=== PATIENT | male | born 1955 | race Caucasian/White ===

== ENCOUNTER → 2016-08-11 | Outpatient (CLI) | payer BC ==
[~2016-08-11] MED LIST: OMEPRAZOLE40 M1 PO
== END | disposition home or self-care (01) ==
LOC: AMB 09:36
DX: C16.8 Malignant neoplasm of overlapping sites of stomach (principal); Z85.038 Personal history of other malignant neoplasm of large intestine; Z93.3 Colostomy status; F17.200 Nicotine dependence, unspecified, uncomplicated; Z88.0 Allergy status to penicillin
CPT/HCPCS: J0330; J1100; J2250; J2405; J3010

== ENCOUNTER 2016-09-07 18:13 | Emergency (ER) | payer BC ==
[~2016-09-07] VITALS: Ht 175.3 cm; Wt 62.2 kg
[2016-09-07 18:24] VITALS: BP 96/73
== END 2016-09-07 19:00 | disposition left against medical advice (07) ==
LOC: EME 18:13
DX: T82.598A Other mechanical complication of other cardiac and vascular devices and implants, initial encounter (principal); Z53.21 Procedure and treatment not carried out due to patient leaving prior to being seen by health care provider
CPT/HCPCS: 99281; 99284

== ENCOUNTER 2016-11-14 17:16 | Emergency (ER) | payer BC ==
[~2016-11-14] VITALS: Ht 175.3 cm; Wt 65.1 kg
[~2016-11-14 17:16] MED LIST changes: +Magic Mouthwash; +ROXICODONE5 MG PO; +WELLBUTRIN100 MG PO
[2016-11-14 18:10] LABS: HEMATOCRIT 24.5 % (38.0-50.0); MCH 30.9 PG (29.0-34.0); MCHC 33.1 G/DL (30.0-36.0); MCV 93.5 FL (86-99); MEAN PLAT.VOLUME 9.4 uM^3 (9.0-12.4); PLATELET COUNT 210 K/uL (156-360); RBC DIS.WIDTH-CV 15.7 % (11.8-14.6); RBC DIS.WIDTH-SD 53.6 % (39-53); RED BLOOD COUNT 2.62 M/uL (4.00-5.50)
[2016-11-14 18:18] LABS: CHLORIDE 98 mEq/L (99-109); POTASSIUM 3.6 mEq/L (3.7-5.4); SODIUM 130 mEq/L (136-147)
[2016-11-14 18:20] LABS: GLUCOSE 95 mg/dL (70-99)
[2016-11-14 18:21] LABS: ANION GAP 8 MEQ/L (2-14)
[2016-11-14 18:22] LABS: TOTAL BILIRUBIN 0.8 mg/dL (0.0-1.0)
[2016-11-14 18:24] LABS: ALKALINE PHOSPHATASE 87 IU/L (3-129); GFR ESTIMATE (CALCULATED) > 59 mL/min/
[2016-11-14 18:25] LABS: UREA NITROGEN (BUN) 20 mg/dL (9-23)
[2016-11-14 18:52] LABS: SAMPLE HEMOLYSIS CHECK 0; SAMPLE ICTERIC CHECK 0; SAMPLE LIPEMIA CHECK 0
[2016-11-14 19:03] LABS: LIPASE < 3 U/L (1.0-51.0)
[2016-11-14 20:59] VITALS: BP 98/70
== END 2016-11-14 21:04 | disposition home or self-care (01) ==
LOC: EME 17:16
DX: K94.13 Enterostomy malfunction (principal); Z87.891 Personal history of nicotine dependence
CPT/HCPCS: 80053; 83690; 85027; 99281; 99284; J7030

== ENCOUNTER 2016-11-24 11:59 | Inpatient (IN) | payer BC ==
[~2016-11-24] VITALS: Ht 175.3 cm; Wt 56.5 kg
[2016-11-24 12:49] LABS: EOSINOPHIL (%) 3.5 % (0-5); EOSINOPHIL COUNT 0.4 K/uL (0-0.3); HEMATOCRIT 29.9 % (38.0-50.0); IMMATURE GRANULOCYTE (%) 0.7 % (0.0-0.7); IMMATURE GRANULOCYTE COUNT 0.1 K/uL; INSTRUMENT ABS NEUTROPHIL CT 8.7 K/uL; LYMPHOCYTE COUNT 2.1 K/uL (1.0-2.8); MCH 30.5 PG (29.0-34.0); MCHC 31.4 G/DL (30.0-36.0); MCV 97.1 FL (86-99); MEAN PLAT.VOLUME 9.6 uM^3 (9.0-12.4); MONOCYTE (%) 6.3 % (3-12); MONOCYTE COUNT 0.8 K/uL (0-0.8); NEUTROPHIL (%) 71.7 % (45-76); NEUTROPHIL COUNT 8.7 K/uL (1.8-6.4); RBC DIS.WIDTH-SD 56.9 % (39-53); RED BLOOD COUNT 3.08 M/uL (4.00-5.50); WHITE BLOOD COUNT 12.2 K/uL (4.1-10.2)
[2016-11-24 12:58] LABS: CHLORIDE 102 mEq/L (99-109); POTASSIUM 4.7 mEq/L (3.7-5.4); SODIUM 138 mEq/L (136-147)
[2016-11-24 13:00] LABS: GLUCOSE 99 mg/dL (70-99)
[2016-11-24 13:01] LABS: ANION GAP 12 MEQ/L (2-14); PLATELET COUNT 611 K/uL (156-360)
[2016-11-24 13:02] LABS: TOTAL BILIRUBIN 0.4 mg/dL (0.0-1.0)
[2016-11-24 13:04] LABS: ALKALINE PHOSPHATASE 136 IU/L (3-129); GFR ESTIMATE (CALCULATED) > 59 mL/min/
[2016-11-24 13:05] LABS: UREA NITROGEN (BUN) 21 mg/dL (9-23)
[2016-11-24] MEDS ORDERED: BUPROPION HCL150 M2 PO (18:21)
[2016-11-24] MEDS ORDERED: COLACE100 MG PO (18:22)
[2016-11-24] MEDS ORDERED: SENOKOT,SENN1 TABLET PO (18:23)
[2016-11-24 21:19] VITALS: BP 107/68
[2016-11-24 23:23] VITALS: BP 112/74
[2016-11-25 04:12] VITALS: BP 124/84
[2016-11-25 05:09] LABS: HEMATOCRIT 27.5 % (38.0-50.0); MCH 30.9 PG (29.0-34.0); MCV 96.5 FL (86-99); MEAN PLAT.VOLUME 9.8 uM^3 (9.0-12.4); PLATELET COUNT 551 K/uL (156-360); RBC DIS.WIDTH-CV 15.8 % (11.8-14.6); RBC DIS.WIDTH-SD 56.5 % (39-53); RED BLOOD COUNT 2.85 M/uL (4.00-5.50); WHITE BLOOD COUNT 10.9 K/uL (4.1-10.2)
[2016-11-25 05:38] LABS: ANION GAP 8 MEQ/L (2-14); CHLORIDE 100 MEQ/L (99-109); GFR ESTIMATE (CALCULATED) > 59 mL/min/; GLUCOSE 112 mg/dL (70-99); POTASSIUM 4.4 MEQ/L (3.7-5.4); SAMPLE HEMOLYSIS CHECK 0; SAMPLE ICTERIC CHECK 0; SAMPLE LIPEMIA CHECK 0; SODIUM 137 MEQ/L (136-147); UREA NITROGEN (BUN) 12 mg/dL (9-23)
[2016-11-25 08:09] VITALS: BP 102/63
[2016-11-25 11:31] VITALS: BP 107/72
[2016-11-25 15:15] VITALS: BP 120/75
[2016-11-25 23:29] VITALS: BP 106/65
[2016-11-26 07:23] VITALS: BP 106/67
[2016-11-27 00:08] VITALS: BP 107/63
[2016-11-27 07:09] VITALS: BP 108/67
[2016-11-27 15:24] VITALS: BP 109/73
[2016-11-27 23:33] VITALS: BP 102/64
[2016-11-28 04:10] VITALS: BP 102/64
[2016-11-28 08:02] VITALS: BP 104/74
[2016-11-28 14:33] LABS: ANION GAP 7 MEQ/L (2-14); CHLORIDE 100 MEQ/L (99-109); MAGNESIUM 1.7 mg/dl (1.3-2.7); POTASSIUM 3.9 MEQ/L (3.7-5.4); SAMPLE HEMOLYSIS CHECK 0; SAMPLE ICTERIC CHECK 0; SAMPLE LIPEMIA CHECK 0; SODIUM 137 MEQ/L (136-147); TOTAL BILIRUBIN 0.4 MG/DL (0.0-1.0)
[2016-11-28 14:35] LABS: BASOPHIL COUNT 0.1 K/uL (0-0.1); EOSINOPHIL (%) 5.8 % (0-5); EOSINOPHIL COUNT 0.4 K/uL (0-0.3); HEMATOCRIT 29.3 % (38.0-50.0); IMMATURE GRANULOCYTE (%) 0.3 % (0.0-0.7); LYMPHOCYTE COUNT 2.2 K/uL (1.0-2.8); MCH 30.4 PG (29.0-34.0); MCHC 31.4 G/DL (30.0-36.0); MCV 96.7 FL (86-99); MEAN PLAT.VOLUME 9.3 uM^3 (9.0-12.4); MONOCYTE (%) 11.1 % (3-12); MONOCYTE COUNT 0.7 K/uL (0-0.8); NEUTROPHIL (%) 46.7 % (45-76); PLATELET COUNT 475 K/uL (156-360); RBC DIS.WIDTH-CV 15.1 % (11.8-14.6); RBC DIS.WIDTH-SD 53.7 % (39-53); RED BLOOD COUNT 3.03 M/uL (4.00-5.50)
[2016-11-28 14:36] LABS: WHITE BLOOD COUNT 6.4 K/uL (4.1-10.2)
[2016-11-28 14:48] LABS: ALKALINE PHOSPHATASE 99 IU/L (3-129); GFR ESTIMATE (CALCULATED) > 59 mL/min/; GLUCOSE 104 mg/dL (70-99); UREA NITROGEN (BUN) 9 mg/dL (9-23)
[2016-11-28] MEDS ORDERED: METRONIDAZOLE500 MG PO (16:21)
[2016-11-28] MEDS ORDERED: CIPRO500 MG PO (16:21)
== END 2016-11-28 17:54 | disposition home health service (06) | DRG 394 ==
LOC: EME 11:59 → EDOF 20:02 → 3EAST 20:02
PROVIDERS: Emergency Medicine; Surgery
DX: K63.2 Fistula of intestine (principal); T81.30XA Disruption of wound, unspecified, initial encounter; C16.9 Malignant neoplasm of stomach, unspecified; R64 Cachexia; Z68.1 Body mass index [BMI] 19.9 or less, adult; D72.829 Elevated white blood cell count, unspecified; Z93.3 Colostomy status
CPT/HCPCS: 74177; 80048; 80053; 83735; 84100; 85025; 85027; 87070; 87075; 87076; 87077; 87185; 87205; 94799; 99281; 99285; J0744; J2060; J2405; J3480; J7030; J7120; S0030

== ENCOUNTER → 2017-12-03 | Outpatient (CLI) | payer BC ==
[~2017-12-03] MED LIST changes: +BUPROPION HCL150 M2 PO; +CIPRO500 MG PO; +COLACE100 MG PO; +CYANOCOBAL1000 MCG/2 IM; +IRON325 M1 PO; +MAGNESIUM400 M1 PO; +METRONIDAZOLE500 MG PO; +MULTI VITAMIN1 EACH PO; +SENOKOT,SENN1 TABLET PO; +VITAMIN B122500 MCG PO
[2017-12-03 07:57] LABS: HEMATOCRIT 38.2 % (38.0-50.0); HEMOGLOBIN 12.2 G/DL (12.5-16.6); MCH 29.6 PG (29.0-34.0); MCHC 31.9 G/DL (30.0-36.0); MCV 92.7 FL (86-99); PLATELET COUNT 210 K/uL (156-360); RBC DIS.WIDTH-SD 47.5 % (39-53); RED BLOOD COUNT 4.12 M/uL (4.00-5.50); WHITE BLOOD COUNT 8.4 K/uL (4.1-10.2)
[2017-12-03 08:05] LABS: PTT 28.7 SEC (25-37)
== END | disposition home or self-care (01) ==
LOC: OPR 07:19 → EDSTATUS 08:00 → OPR 08:00
PROVIDERS: Internal Medicine Hematology & Oncology
PROC: 0GB33ZX Excision of Right Adrenal Gland, Percutaneous Approach, Diagnostic (ICD-10-PCS; principal; 2017-12-03)
DX: C79.71 Secondary malignant neoplasm of right adrenal gland (principal); C16.9 Malignant neoplasm of stomach, unspecified; F17.200 Nicotine dependence, unspecified, uncomplicated; Z68.1 Body mass index [BMI] 19.9 or less, adult; Z88.0 Allergy status to penicillin
CPT/HCPCS: 77012; 85027; 85610; 85730; 88305; 88341 TC; 88342 TC; J3010